=== PATIENT | male | born 1930 | race Caucasian/White ===

== ENCOUNTER 2017-12-07 18:59 | Emergency (ER) | payer OTHER, BC ==
[~2017-12-07] VITALS: Ht 177.8 cm; Wt 45.9 kg
[~2017-12-07 18:59] MED LIST: ADULT LOW DOSE81 M1 PO; ARICEPT10 MG PO; ASPIR-TRIN325 M1 PO; ASPIRIN325 MG PO; BUSPIRONE HCL5 MG PO; CALCIUM 600 +1 EAC7 PO; CALMOSEPTINE O120 GM TP; CENTRUM SILVER1 EACH PO; CENTRUM TABLET1 EACH PO; DONEPEZIL HCL10 MG PO; HEALTHY EYES C1 EACH PO; KEFLEX500 MG PO; LITE COAT ASPI325 M1 PO; MIRALAX255 GM PO; NAMENDA10 MG PO; OCUVITE TABLET1 EACH PO; SENEXON-S TABL1 EACH PO; SENOKOT S,PE1 TABLET PO; SEROQUEL12.5 MG PO; SEROQUEL50 MG PO; TRAMADOL HCL50 MG PO; TRIAMCINOLONE A30 GM TP; TYLENOL REGULA325 MG PO; TYLENOL WITH C1 EACH PO; Ultram PO; VICODIN,LORT1 TABLET PO; VITAMIN D250000 UNIT PO; Vicodin,Lortab 5/500 PO
[2017-12-07 20:22] LABS: BASOPHIL (%) 0.2 % (0-1); EOSINOPHIL (%) 0.4 % (0-5); EOSINOPHIL COUNT 0.1 K/uL (0-0.3); HEMATOCRIT 40.9 % (38.0-50.0); HEMOGLOBIN 13.9 G/DL (12.5-16.6); IMMATURE GRANULOCYTE (%) 0.3 % (0.0-0.7); LYMPHOCYTE (%) 4.7 % (15-42); LYMPHOCYTE COUNT 0.6 K/uL (1.0-2.8); MONOCYTE (%) 4.5 % (3-12); MONOCYTE COUNT 0.6 K/uL (0-0.8); NEUTROPHIL (%) 89.9 % (45-76); NEUTROPHIL COUNT 11.5 K/uL (1.8-6.4); PLATELET COUNT 145 K/uL (156-360); RBC DIS.WIDTH-CV 14.3 % (11.8-14.6); RBC DIS.WIDTH-SD 49.1 % (39-53); RED BLOOD COUNT 4.35 M/uL (4.00-5.50); WHITE BLOOD COUNT 12.8 K/uL (4.1-10.2)
[2017-12-07 20:32] LABS: CHLORIDE 111 mEq/L (99-109); POTASSIUM 4.2 mEq/L (3.7-5.4); SODIUM 143 mEq/L (136-147)
[2017-12-07 20:33] LABS: GLUCOSE 112 mg/dL (70-99)
[2017-12-07 20:37] LABS: CREATININE 0.9 mg/dL (0.6-1.3); GFR ESTIMATE (CALCULATED) > 59 mL/min/ (58.99-99999)
[2017-12-07 20:38] LABS: UREA NITROGEN (BUN) 22 mg/dL (9-23)
[2017-12-07] MEDS ORDERED: KEFLEX750 MG PO (23:25)
[2017-12-07 23:47] VITALS: BP 97/52
== END 2017-12-07 23:57 ==
LOC: EME 18:59
PROVIDERS: Emergency Medicine
DX: N39.0 Urinary tract infection, site not specified (principal); E86.0 Dehydration; G30.9 Alzheimer's disease, unspecified; F03.90 Unspecified dementia, unspecified severity, without behavioral disturbance, psychotic disturbance, mood disturbance, and anxiety; J44.9 Chronic obstructive pulmonary disease, unspecified; K21.9 Gastro-esophageal reflux disease without esophagitis
CPT/HCPCS: 80048; 85025 91; 99281; 99285; J0696; J7030